=== PATIENT | male | born 1955 | race African-American/Black ===

== ENCOUNTER 2017-08-24 19:55 | Emergency (ER) | payer MEDICARE | END 2017-08-24 21:00 | disposition home or self-care (01) | LOC: D.ER 19:55 | DX: G47.00 Insomnia, unspecified (principal); F17.200 Nicotine dependence, unspecified, uncomplicated ==

== ENCOUNTER 2019-04-06 16:42 | Emergency (ER) | payer MEDICARE ==
[~2019-04-06] VITALS: Ht 170.2 cm; Wt 75.0 kg
[2019-04-06 16:48] VITALS: Ht 170.2 cm; Wt 75.0 kg
[2019-04-06] MEDS ORDERED: HALDOL5 MG (16:49)
[2019-04-06] MEDS ORDERED: ZYPREXA20 MG PO (16:49)
[2019-04-06] MEDS ORDERED: STOOL SOFTENER100 M1 (16:50)
[2019-04-06] MEDS ORDERED: LEXAPRO5 MG (16:50)
[2019-04-06] MEDS ORDERED: TRAZODONE HCL150 MG ×2 (16:50→16:51)
[2019-04-06 17:15] LABS: BASOPHILS 0.3 % (0-2); EOSINOPHILS 1.7 % (0-7); HEMATOCRIT 40.7 % (42.0-54.0); HEMOGLOBIN 13.1 g/dL (13.5-17.5); LYMPHOCYTES 46.2 % (15-50); MCH 23.8 pg (26.0-34.0); MCHC 32.2 g/dL (31.0-37.0); MCV 73.9 fL (80.0-100.0); MEAN PLATELET VOLUME 9.6 fL (7.4-10.4); MONOCYTES 10.4 % (2-11); NEUTROPHILS 41.4 % (40-80); PLATELET COUNT 185 10x3/uL (130-400); RBC 5.51 10x6/uL (4.20-6.10); RDW 15.1 % (11.5-14.5); WBC 3.5 10x3/uL (4.8-10.8)
[2019-04-06 17:40] LABS: ALBUMIN 3.8 g/dL (3.4-5.0); ALKALINE PHOSPHATASE 86 U/L (46-116); ALT (SGPT) 27 U/L (10-68); BILIRUBIN - TOTAL 0.17 mg/dL (0.2-1.3); CALC OSMOLALITY 276 mosm/kg (275-300); CARBON DIOXIDE 29.8 mmol/L (21.0-32.0); CHLORIDE - SERUM 105 mmol/L (98-107); CREATININE - SERUM 1.2 mg/dL (0.6-1.3); GLUCOSE 82 mg/dL (74-106); LIPASE 244 U/L (73-393); MAGNESIUM - SERUM 2.2 mg/dL (1.8-2.4); POTASSIUM - SERUM 3.6 mmol/L (3.5-5.1); PRO BNP 26 pg/mL (0-125); PROTEIN - SERUM 6.8 g/dL (6.4-8.2); SODIUM 138 mmol/L (136-145); THYROID STIMULATING HORMONE 1.32 uIU/mL (0.36-3.74); TROPONIN-I < 0.017 ng/mL (0.000-0.060); UREA NITROGEN 18 mg/dL (7-18); eGFR NON AFRICAN AMERICAN 65 mL/min (90-120)
[2019-04-06 18:14] LABS: UDS - AMPHET NEGATIVE QUAL (NEGATIVE); UDS - BARB NEGATIVE QUAL (NEGATIVE); UDS - BENZO NEGATIVE QUAL (NEGATIVE); UDS - COCAINE NEGATIVE QUAL (NEGATIVE); UDS - OPIATE NEGATIVE QUAL (NEGATIVE); UDS - PCP NEGATIVE QUAL (NEGATIVE); UDS - THC NEGATIVE QUAL (NEGATIVE)
[2019-04-06 19:01] VITALS: BP 122/68
== END 2019-04-06 19:02 | disposition home or self-care (01) ==
LOC: D.ER 16:42
PROVIDERS: Family Medicine
DX: R51 Headache (principal)

== ENCOUNTER 2019-12-02 15:54 | Emergency (ER) | payer MEDICARE ==
[~2019-12-02] VITALS: Ht 170.2 cm; Wt 61.4 kg
[~2019-12-02 15:54] MED LIST: HALDOL5 MG; LEXAPRO5 MG; STOOL SOFTENER100 M1; TRAZODONE HCL150 MG; ZYPREXA20 MG PO
[2019-12-02 16:27] VITALS: Ht 170.2 cm; Wt 61.4 kg
[2019-12-02 20:59] VITALS: BP 157/93
== END 2019-12-02 20:58 | disposition home or self-care (01) ==
LOC: D.ER 15:54
DX: Z79.899 Other long term (current) drug therapy (principal)